=== PATIENT | female | born 1990 | race Caucasian/White ===

== ENCOUNTER 2016-10-12 11:34 | Day surgery (SDC) | payer OTHER ==
[2016-10-08 11:06] VITALS: BMI 30.9
[~2016-10-12 11:34] MED LIST: DEXAMETHASONE SOD PHOSPHATE 10 MG/ML 1 ML VIAL IV ONE; HYDROmorphone 1 MG/ML 1 ML SYRINGE IVP PRN; LACTATED RINGERS 1,000 ML IV SCH; LIDOCAINE 1% 20 ML VIAL (10MG/ML) FOR IV START INTRADERMA PRN; MIDAZOLAM 2 MG/2 ML VIAL IV PRN; ONDANSETRON 4 MG/2 ML VIAL IVP ONE; Pre Op ABX Message 1 EACH MISC MISCELLANE ONE; SCOPOLAMINE 1.5MG/72HR PATCH TRANSDERM ONE
[2016-10-12 12:55] VITALS: TEMP 97.8
[2016-10-12] MEDS ORDERED: fentaNYL (PF) 50 MCG/ML 2 ML AMP ONE (13:24)
[2016-10-12] MEDS ORDERED: diphenhydrAMINE 50 MG/ML 1 ML VIAL ONE (13:24)
[2016-10-12] MEDS ORDERED: PROPOFOL 10 MG/ML 20 ML VIAL IV ONE (13:24)
[2016-10-12] MEDS ORDERED: MIDAZOLAM 2 MG/2 ML VIAL ONE (13:24)
[2016-10-12] MEDS ORDERED: LIDOCAINE 1% INJ 10MG/ML (20 ML MDV) ONE (13:24)
[2016-10-12] MEDS ORDERED: BUPIVACAINE (PF) 0.5% 30 ML VIAL SQ ONE (13:43)
[2016-10-12] MEDS ORDERED: LIDOCAINE 2% (PF) 20 MG/ML 10ML SQ ONE (13:43)
[2016-10-12 14:46] VITALS: RESP 18
[2016-10-12 15:22] VITALS: BP 116/65; PULSE 47
--- NOTE | 2016-10-13 20:06 | OP ---
DATE OF SERVICE: SURGEON: PERLA QUIÑONEZ DO SALES REPRESENTATIVE BUSINESS COURSES: PREOPERATIVE DIAGNOSIS: Lacerated flexor tendons and digital nerves, left middle finger. POSTOPERATIVE DIAGNOSES: 1. Complete laceration flexor digitorum profundus zone 2 left middle finger with retraction into the palm. 2. Complete laceration flexor digitorum superficialis zone 2 left middle finger with retraction. 3. Complete laceration ulnar digital nerve and vessel left middle finger at the PIP joint level. OPERATION: 1. Repair flexor digitorum profundus, left middle finger zone 2. 2. Excision plus flexor digitorum superficialis tendon. 3. Repair ulnar digital nerve, left middle finger under magnification. ANESTHESIA: ESTIMATED BLOOD LOSS: SPECIMENS REMOVED: COMPLICATIONS: OPERATIVE FINDINGS: INDICATIONS: 26-year-old woman sustained a glass laceration volar PIP joint her left middle finger with tendon and nerve injuries. GROSS PATHOLOGY: Both tendons were cut transversely the PIP joint level. The profundus had retracted into the palm, the sublimis had retracted beneath the A4 kevin. I made a decision that repairing both tendons would increase the chances of adhesions and problems with excursion and contracture and therefore elected to excise the sublimis tendon in favor appearing the profundus and leaving adequate space within the kevin system. Both A2 and A4 pulleys were left intact and the repair was performed in the window between the 2 pulleys. A 6 ( ) core suture of 30 Tycron was used for the profundus tendon repair along with 6-0 nylon peripheral running suture and digital nerve was repaired with 9-0 nylon. Both repairs were done without excess tension. DESCRIPTION OF PROCEDURE: This 26-year-old woman was taken to the operative suite, given IV sedation, and I did a modified digital block more proximal in the palm of her left middle finger with a combination Xylocaine and Marcaine, both without epinephrine. Her hand was prepped and draped in the usual manner. The hand was elevated, exsanguinated and cuff was inflated 250 mmHg. The transverse laceration at the PIP joint level was opened and both tendon lacerations were apparent. This was extended proximally. The sublimis tendon was located beneath the A4 kevin but profundus tendon was still missing. A separate incision was made at the distal palmar skin crease base of the middle finger where the profundus tendon was localized. At this point, I made the decision to sacrifice sublimis tendon for the above reasons. It was retracted into the palm and cut off at this level. Initial core suture using a modified [place] double grafting technique was used in the proximal stump of the profundus tendon. The suture was then fed through the A2 kevin into the window for the repair site. Core suture with performed with a 3-0 Tycron suture. This was then supplemented with 6-0 nylon ( ) suture which held nicely approximating the edges and kept the knots contained. An additional double mattress suture of 3-0 Tycron was used creating a total of a 6 strand core repair. Attention was then turned to the digital nerves. Both nerve and endings were identified, cut freshly and repaired with epineural 9-0 nylon. Three sutures were used circumferentially. Both tendon and nerve repairs were done without any signs of excess tension. The wound was then thoroughly irrigated. Tourniquet was released. The wound was thoroughly irrigated. Skin was closed with 5-0 nylon suture. Soft, bulky dressing and volar and dorsal plaster splints were applied holding the wrist in slight flexion and the ulnar 3 fingers in an intrinsic plus position. The patient was then taken to the recovery room in satisfactory condition.
== END 2016-10-12 15:50 | disposition home or self-care (01) ==
LOC: OR 11:34
PROVIDERS: ATTEND Orthopaedic Surgery Hand Surgery
DX: S66.123A Laceration of flexor muscle, fascia and tendon of left middle finger at wrist and hand level, initial encounter (principal); S64.02XA Injury of ulnar nerve at wrist and hand level of left arm, initial encounter; W25.XXXA Contact with sharp glass, initial encounter; F17.200 Nicotine dependence, unspecified, uncomplicated; Z79.899 Other long term (current) drug therapy
CPT/HCPCS: 81025; 26356; 26180; 64831; J2250; J1200; J1100; J2001 ×2; J2405; J3010; J2704; 99152